=== PATIENT | male | born 1975 | race Caucasian/White ===

== ENCOUNTER 2019-02-09 19:04 | Emergency (ER) | payer BC ==
[2019-02-09 19:25] VITALS: BP 154/97
[2019-02-09] MEDS ORDERED: Sulfamethox/Trimethoprim DS 800/160* TAB PO ONE (19:50)
--- NOTE | 2019-02-09 19:55 | UC ---
Elbow Pain - HPI Summary HPI Summary: patient denies any truam to right elbow, but he does srive [employer] for work. he noticed a slight swelling of the right elbow and today it feels wram and is slightly red. denies any fever. - History of Current Complaint Chief Complaint: Perico Stated Complaint: RIGHT ELBOW SWELLING/PAIN Time Seen by Provider: 02/09/19 19:41 Hx Obtained From: Patient Onset/Duration: Days Severity Initially: Mild Severity Currently: Severe Pain Intensity: 10 Character: Aching, Throbbing, Stiffness Alleviating Factor(s): Ice Associated Signs And Symptoms: Positive: Swelling, Redness - Allergies/Home Medications Allergies/Adverse Reactions: Allergies Allergy/AdvReac Type Severity Reaction Status Date / Time No Known Allergies Allergy Verified 02/09/19 19:25 PMH/Surg Hx/FS Hx/Imm Hx Previously Healthy: Yes - Surgical History Surgical History: Yes Surgery Procedure, Year, and Place: Left Achilles, 06/02/16, [place]; Vasectomy , 2012, [place], Appendectomy, 2015, [place]; Right Knee Arthroscopy, 1991, [place]; Jaw Fracture, 1977, [place] - Family History Known Family History: Positive: Cardiac Disease, Hypertension, Diabetes - Social History Alcohol Use: None Substance Use Type: None Smoking Status (MU): Never Smoked Tobacco Review of Systems All Other Systems Reviewed And Are Negative: Yes Constitutional: Positive: Negative Skin: Positive: Negative Eyes: Positive: Negative ENT: Positive: Negative Respiratory: Positive: Negative Cardiovascular: Positive: Negative Gastrointestinal: Positive: Negative Genitourinary: Positive: Negative Motor: Positive: Negative Musculoskeletal: Positive: Arthralgia, Decreased ROM, Edema Neurological: Positive: Negative Psychological: Positive: Negative Is Patient Immunocompromised?: No Physical Exam Triage Information Reviewed: Yes Appearance: Well-Appearing, Well-Nourished, Pain Distress Vital Signs: Initial Vital Signs Temp 97.4 F 02/09/19 19:22 Pulse 64 02/09/19 19:22 Resp 17 02/09/19 19:22 BP 154/97 02/09/19 19:22 Pulse Ox 99 02/09/19 19:22 Vital Signs Reviewed: Yes Eye Exam: Normal ENT Exam: Normal Dental Exam: Normal Neck exam: Normal Respiratory Exam: Normal Cardiovascular Exam: Normal Abdominal Exam: Normal Bowel Sounds: Positive: Present Musculoskeletal: Positive: ROM Limited @ - due to pain and swelling of the right elbow Neurological Exam: Normal Psychological Exam: Normal Skin Exam: Normal Elbow Pain Course/Dx - Course Course Of Treatment: hx obtained, exam performed ,meds reviewed, treated for bursitis - Differential Dx/Diagnosis Differential Diagnosis/HQI/PQRI: Bursitis, Fracture (Closed), Infection, Joint Effusion, Sprain, Strain Provider Diagnosis: Olecranon bursitis, right elbow Discharge - Sign-Out/Discharge Documenting (check all that apply): Patient Departure All imaging exams completed and their final reports reviewed: No Studies - Discharge Plan Condition: Stable Disposition: HOME Prescriptions: Sulfamethox/Trimethoprim DS* [Bactrim DS 800/160 TAB*] 1 tab PO BID #13 tab Patient Education Materials: Elbow Bursitis (ED) Referrals: Halley Serra MD [Primary Care Provider] - Karan Gudino MD [Medical Doctor] - Additional Instructions: 1. take the medication as prescribed. 2. Use the radha wrap daily 3. Take Meloxicam as prescribed. OR Ibuprofen 600 mg every 6 hours 4. FOllow up with orthopedics if not improving. - Billing Disposition and Condition Condition: STABLE Disposition: Home - Attestation Statements Provider Attestation: Per institutional requirements, I have reviewed the chart, however, I was not consulted specifically or made aware of this patient by the midlevel provider. I did not personally evaluate, interact with , or disposition this patient.
== END 2019-02-09 20:00 | disposition home or self-care (01) ==
LOC: UCCORT 19:04
DX: M70.21 Olecranon bursitis, right elbow (principal)
CPT/HCPCS: 99212; A9270-GY; G0463

== ENCOUNTER 2019-09-13 09:19 | Emergency (ER) | payer BC ==
--- OUTSIDE RECORDS SUMMARY | 2019-09-13 09:28 | XMS REPORT | Continuity of Care Document ---
:1975 External Reference #:[id number] Author Name Junior Strauss (transmitted by agent of provider Krystyna Liang) Address [address] [place] [address] Care Team Providers Name Role Phone Junior Strauss MD - Internal Medicine Care Team Information Child Care Centre Director [phone] Problems Description No Information Available Social History Type Date Description Comments Sex Unknown Allergies, Adverse Reactions, Alerts Description No Information Available Medications Description No Information Available Immunizations Description No Information Available Vital Signs Date Vital Result Comment 08/07/2019 12:01pm BP Systolic 142 mmHg BP Diastolic 90 mmHg Heart Rate 72 /min Height 70 inches 5'10" Weight 230.00 lb BMI (Body Mass Index) 33.0 kg/m2 O2 % BldC Oximetry 98 % Results Description No Information Available Procedures Description No Information Available Medical Devices Description No Information Available Encounters Description No Information Available Assessments Description No Information Available Plan of Treatment No Information Available Functional Status Description No Information Available Mental Status Description No Information Available Referrals Description No Information Available
--- OUTSIDE RECORDS SUMMARY | 2019-09-13 09:28 | XMS REPORT | Continuity of Care Document ---
:1975 External Reference #:[id number] Author Name Junior Strauss (transmitted by agent of provider Clarissa Priest) Address [address] [place] [address] Care Team Providers Name Role Phone Junior Strauss MD - Internal Medicine Care Team Information Sports Development Officer Problems Description No Information Available Social History [...]
[2019-09-13 09:59] VITALS: BP 139/85
--- NOTE | 2019-09-13 10:24 | UC ---
Throat Pain/Nasal Trevon HPI - HPI Summary HPI Summary: 43 yo with 2 week hx of sinus pain and pressure with progressive cough. No shortness of breath. Fatigued, has headaches off and on, low energy. - History of Current Complaint Chief Complaint: UCGeneralIllness Stated Complaint: SINUS COMPLAINT Time Seen by Provider: 09/13/19 10:17 Hx Obtained From: Patient Onset/Duration: Gradual Onset, Lasting Weeks - 2 Severity: Mild Pain Intensity: 0 Cough: Nonproductive Associated Signs & Symptoms: Positive: Hoarseness, Sinus Discomfort. Negative: Dysphagia, Wheezing - Allergies/Home Medications Allergies/Adverse Reactions: Allergies Allergy/AdvReac Type Severity Reaction Status Date / Time No Known Allergies Allergy Verified 09/13/19 09:59 PMH/Surg Hx/FS Hx/Imm Hx Previously Healthy: Yes - Surgical History Surgical History: Yes Surgery Procedure, Year, and Place: Left Achilles, 06/02/16, [place]; Vasectomy , 2012, [place], Appendectomy, 2015, [place]; Right Knee Arthroscopy, 1991, [place]; Jaw Fracture, 1977, [place] - Family History Known Family History: Positive: Cardiac Disease, Hypertension, Diabetes - Social History 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 Lives: With Family Alcohol Use: Occasionally Substance Use Type: None Smoking Status (MU): Never Smoked Tobacco Review of Systems All Other Systems Reviewed And Are Negative: Yes Constitutional: Positive: Fatigue Skin: Positive: Negative Eyes: Positive: Negative ENT: Positive: Sinus Congestion, Sinus Pain/Tenderness Respiratory: Positive: Cough. Negative: Shortness Of Breath Cardiovascular: Positive: Negative Gastrointestinal: Positive: Negative Genitourinary: Positive: Negative Motor: Positive: Negative Neurovascular: Positive: Negative Musculoskeletal: Positive: Myalgia - rarely uses mobic for low back pain, and does not combine with ibuprofen Neurological: Positive: Headache Psychological: Positive: Negative Is Patient Immunocompromised?: No Physical Exam Triage Information Reviewed: Yes Appearance: No Pain Distress, Ill-Appearing - mildly ill looking. Vital Signs: Initial Vital Signs Temp 98.0 F 09/13/19 09:55 Pulse 78 09/13/19 09:55 Resp 16 09/13/19 09:55 BP 139/85 09/13/19 09:55 Pulse Ox 100 09/13/19 09:55 Eyes: Positive: Conjunctiva Clear ENT: Positive: Pharyngeal erythema, TMs normal, Sinus tenderness Neck: Positive: Supple, Nontender, No Lymphadenopathy Respiratory: Positive: Lungs clear, Normal breath sounds Cardiovascular: Positive: RRR, No Murmur Abdominal Exam: Normal Musculoskeletal Exam: Normal Neurological Exam: Normal Psychological Exam: Normal Skin Exam: Normal Throat Pain/Nasal Course/Dx - Course Course Of Treatment: augmentin for tx of sinusitis. - Differential Dx/Diagnosis Differential Diagnosis/HQI/PQRI: Pharyngitis, Sinusitis Provider Diagnosis: Sinusitis Discharge ED - Sign-Out/Discharge Documenting (check all that apply): Patient Departure All imaging exams completed and their final reports reviewed: No Studies - Discharge Plan Condition: Good Disposition: HOME Prescriptions: Amoxicillin/Clavulanate TAB* [Augmentin TAB 875*] 875 mg PO BID #20 tab Patient Education Materials: Sinusitis (ED) Referrals: Halley Serra MD [Primary Care Provider] - Additional Instructions: Begin use of augmentin for treatment of sinus infection. You can use saline nose spray or flonase spary over the counter to help to relieve sinus pressure. - Billing Disposition and Condition Condition: GOOD Disposition: Home
== END 2019-09-13 10:36 | disposition home or self-care (01) ==
LOC: UCCORT 09:19
DX: J32.9 Chronic sinusitis, unspecified (principal)
CPT/HCPCS: 99212; G0463